=== PATIENT | male | born 1975 | race Caucasian/White ===

== ENCOUNTER 2023-02-13 15:11 | Emergency (ER) | payer MEDICAID ==
[~2023-02-13] VITALS: Ht 170.2 cm; Wt 89.9 kg
[2023-02-13 15:23] VITALS: BP 132/75; PULSE 106; RESP 20; TEMP 97.7; O2SAT 98
[2023-02-13 16:22] LABS: BASOPHILS % (AUTO) 0.3 % (0.0-2.0); EOSINOPHILS # (AUTO) 0.2 K/uL (0-0.4); EOSINOPHILS % (AUTO) 2.8 % (0.0-4.0); HEMATOCRIT 47.9 % (36-52); HEMOGLOBIN 16.2 g/dL (12.0-18.0); LYMPHOCYTES % (AUTO) 30.1 % (20.5-51.1); MEAN CORPUSCULAR HEMOGLOBIN 30 pg (27-31); MEAN CORPUSCULAR HGB CONC 34 g/dL (33-37); MEAN CORPUSCULAR VOLUME 89.9 fL (80-94); MONOCYTES # (AUTO) 0.4 K/uL (0.8-1.0); MONOCYTES % (AUTO) 6.3 % (1.7-9.3); NEUTROPHILS # (AUTO) 4.1 K/uL (1.8-7.7); NEUTROPHILS % (AUTO) 60.5 % (42.2-75.2); PLATELET COUNT (AUTO) 240 K/uL (140-450); RED BLOOD CELL COUNT(AUTO) 5.33 MIL/uL (4.20-6.10); RED CELL DISTRIBUTION WIDTH 13.5 % (11.6-13.7); WHITE BLOOD COUNT (AUTO) 6.7 K/uL (4.8-10.8)
[2023-02-13 16:40] LABS: ALANINE AMINOTRANSFERASE 67 U/L (12-78); ALBUMIN 4.1 g/dL (3.4-5.0); ALKALINE PHOSPHATASE 90 U/L (50-136); ANION GAP 12.7 (8-16); ASPARTATE AMINOTRANSFERASE 29 U/L (15-37); CALCIUM 8.7 mg/dL (8.5-10.1); CARBON DIOXIDE 27.6 mmol/L (21-32); CHLORIDE 102 mmol/L (98-107); CREATININE 0.9 mg/dL (0.6-1.3); GFR ARICAN-AMERICAN 116 mL/min (>90); GFR NON ARICAN-AMERICAN 96 mL/min (>90); GLUCOSE 101 mg/dL (74-106); POTASSIUM 4.3 mmol/L (3.5-5.1); SODIUM SERUM 138 mmol/L (136-145); TOTAL BILIRUBIN 0.5 mg/dL (0.0-1.0); TOTAL PROTEIN, SERUM 7.7 g/dL (6.4-8.2); UREA NITROGEN, BLOOD 8 mg/dL (7-18)
[2023-02-13] MEDS ORDERED: KETOROLAC 30 MG/ML VIAL IM ONE (18:20)
[2023-02-13] MEDS ORDERED: IBUP-2213 PO (18:45)
[2023-02-13 20:07] VITALS: BP 134/82; PULSE 83; RESP 18; TEMP 97.6; O2SAT 100
== END 2023-02-13 20:07 | disposition home or self-care (01) ==
LOC: MED 15:11
DX: R07.9 Chest pain, unspecified (principal); Z79.1 Long term (current) use of non-steroidal anti-inflammatories (NSAID)
CPT/HCPCS: 36415; 71045; 80053; 84484; 85025; 93005; 96372; 99285; J1885

== ENCOUNTER 2023-03-04 16:59 | Emergency (ER) | payer MEDICAID, OTHER ==
[~2023-03-04] VITALS: Ht 167.6 cm; Wt 86.6 kg
[~2023-03-04 16:59] MED LIST: IBUP-2213 PO
[2023-03-04 17:05] VITALS: BP 111/65; PULSE 101; RESP 22; TEMP 98.3; O2SAT 99
[2023-03-04] MEDS ORDERED: ONDANSETRON 4 MG/2 ML VIAL IVP ONE (17:55)
[2023-03-04] MEDS ORDERED: KETOROLAC 15 MG/ML VIAL IVP ONE (18:00)
[2023-03-04] MEDS ORDERED: ACETAMINOPHEN 325 MG TAB PO ONE (18:00)
[2023-03-04 18:36] LABS: BASOPHILS % (AUTO) 0.3 % (0.0-2.0); EOSINOPHILS # (AUTO) 0.2 K/uL (0-0.4); EOSINOPHILS % (AUTO) 2.4 % (0.0-4.0); HEMATOCRIT 48.1 % (36-52); HEMOGLOBIN 16.4 g/dL (12.0-18.0); LYMPHOCYTES # (AUTO) 2.4 K/uL (2.0-11.5); LYMPHOCYTES % (AUTO) 25.5 % (20.5-51.1); MEAN CORPUSCULAR HEMOGLOBIN 31 pg (27-31); MEAN CORPUSCULAR HGB CONC 34 g/dL (33-37); MEAN CORPUSCULAR VOLUME 89.6 fL (80-94); MONOCYTES # (AUTO) 0.7 K/uL (0.8-1.0); MONOCYTES % (AUTO) 6.8 % (1.7-9.3); NEUTROPHILS # (AUTO) 6.2 K/uL (1.8-7.7); PLATELET COUNT (AUTO) 245 K/uL (140-450); RED BLOOD CELL COUNT(AUTO) 5.37 MIL/uL (4.20-6.10); RED CELL DISTRIBUTION WIDTH 13.5 % (11.6-13.7); WHITE BLOOD COUNT (AUTO) 9.6 K/uL (4.8-10.8)
[2023-03-04 18:45] VITALS: O2SAT 98
[2023-03-04 19:06] LABS: ALANINE AMINOTRANSFERASE 68 U/L (12-78); ALKALINE PHOSPHATASE 84 U/L (50-136); ANION GAP 14.6 (8-16); ASPARTATE AMINOTRANSFERASE 29 U/L (15-37); CALCIUM 8.5 mg/dL (8.5-10.1); CARBON DIOXIDE 23.1 mmol/L (21-32); CHLORIDE 104 mmol/L (98-107); CREATININE 1.1 mg/dL (0.6-1.3); GFR ARICAN-AMERICAN 92 mL/min (>90); GFR NON ARICAN-AMERICAN 76 mL/min (>90); GLUCOSE 92 mg/dL (74-106); POTASSIUM 3.7 mmol/L (3.5-5.1); SODIUM SERUM 138 mmol/L (136-145); TOTAL BILIRUBIN 0.4 mg/dL (0.0-1.0); TOTAL PROTEIN, SERUM 7.6 g/dL (6.4-8.2); UREA NITROGEN, BLOOD 10 mg/dL (7-18)
[2023-03-04 20:00] VITALS: BP 122/70; PULSE 74; RESP 17; O2SAT 98
== END 2023-03-04 20:02 | disposition home or self-care (01) ==
LOC: MED 16:59
DX: R07.9 Chest pain, unspecified (principal); R00.0 Tachycardia, unspecified; F41.9 Anxiety disorder, unspecified; Z88.0 Allergy status to penicillin
CPT/HCPCS: 36415; 71045; 80053; 84484; 85025; 85379; 96374; 96375; 99285; J1885; J2405

== ENCOUNTER 2023-06-15 20:34 | Emergency (ER) | payer MEDICAID, OTHER ==
[~2023-06-15] VITALS: Ht 170.2 cm; Wt 86.6 kg
[2023-06-15 20:48] VITALS: BP 158/85; PULSE 85; RESP 20; TEMP 98; O2SAT 98
[2023-06-15 20:55] VITALS: BP 158/85; PULSE 85; RESP 20; TEMP 98; O2SAT 98
[2023-06-15 21:15] LABS: BASOPHILS % (AUTO) 0.5 % (0.0-2.0); EOSINOPHILS # (AUTO) 0.3 K/uL (0-0.4); EOSINOPHILS % (AUTO) 3.6 % (0.0-4.0); HEMATOCRIT 49.9 % (36-52); HEMOGLOBIN 16.8 g/dL (12.0-18.0); LYMPHOCYTES # (AUTO) 2.3 K/uL (2.0-11.5); LYMPHOCYTES % (AUTO) 32.6 % (20.5-51.1); MEAN CORPUSCULAR HEMOGLOBIN 30 pg (27-31); MEAN CORPUSCULAR HGB CONC 34 g/dL (33-37); MEAN CORPUSCULAR VOLUME 89.4 fL (80-94); MONOCYTES # (AUTO) 0.5 K/uL (0.8-1.0); NEUTROPHILS # (AUTO) 3.9 K/uL (1.8-7.7); NEUTROPHILS % (AUTO) 56.3 % (42.2-75.2); PLATELET COUNT (AUTO) 265 K/uL (140-450); RED BLOOD CELL COUNT(AUTO) 5.58 MIL/uL (4.20-6.10); RED CELL DISTRIBUTION WIDTH 13.6 % (11.6-13.7)
[2023-06-15 21:30] LABS: ANION GAP 12.5 (8-16); CARBON DIOXIDE 29.3 mmol/L (21-32); CREATININE 0.9 mg/dL (0.6-1.3); POTASSIUM 3.8 mmol/L (3.5-5.1); TOTAL BILIRUBIN 0.5 mg/dL (0.0-1.0)
[2023-06-15] MEDS ORDERED: HYDR25CA1 PO (22:06)
== END 2023-06-15 22:08 | disposition home or self-care (01) ==
LOC: MED 20:34
DX: R07.9 Chest pain, unspecified (principal); F41.9 Anxiety disorder, unspecified; R42 Dizziness and giddiness; I10 Essential (primary) hypertension; Z87.891 Personal history of nicotine dependence; Z79.1 Long term (current) use of non-steroidal anti-inflammatories (NSAID); Z88.0 Allergy status to penicillin
CPT/HCPCS: 36415; 71045; 80053; 83880; 84484; 85025; 85379; 93005; 99285; Q0092

== ENCOUNTER 2023-07-28 23:35 | Emergency (ER) | payer OTHER ==
[~2023-07-28] VITALS: Ht 170.2 cm; Wt 86.6 kg
[~2023-07-28 23:35] MED LIST changes: +HYDR25CA1 PO
[2023-07-29 00:02] VITALS: BP 136/81; PULSE 83; RESP 18; TEMP 97.8; O2SAT 97
[2023-07-29 00:53] LABS: BASOPHILS # (AUTO) 0.1 K/uL (0.00-0.22); BASOPHILS % (AUTO) 0.8 % (0.0-2.0); EOSINOPHILS # (AUTO) 0.3 K/uL (0-0.4); EOSINOPHILS % (AUTO) 4.4 % (0.0-4.0); HEMATOCRIT 48.6 % (36-52); HEMOGLOBIN 16.5 g/dL (12.0-18.0); LYMPHOCYTES # (AUTO) 2.7 K/uL (2.0-11.5); LYMPHOCYTES % (AUTO) 40.3 % (20.5-51.1); MEAN CORPUSCULAR HEMOGLOBIN 30 pg (27-31); MEAN CORPUSCULAR HGB CONC 34 g/dL (33-37); MEAN CORPUSCULAR VOLUME 89.7 fL (80-94); MONOCYTES # (AUTO) 0.7 K/uL (0.8-1.0); MONOCYTES % (AUTO) 10.6 % (1.7-9.3); NEUTROPHILS % (AUTO) 43.9 % (42.2-75.2); PLATELET COUNT (AUTO) 243 K/uL (140-450); RED BLOOD CELL COUNT(AUTO) 5.42 MIL/uL (4.20-6.10); WHITE BLOOD COUNT (AUTO) 6.8 K/uL (4.8-10.8)
[2023-07-29 01:17] LABS: INR 0.94 (0.8-1.2); PARTIAL THROMBOPLASTIN TIME 24.6 secs (22-35.6); PROTHROMBIN TIME 9.9 secs (10.8-13.4)
[2023-07-29 01:24] LABS: ANION GAP 12.2 (8-16); CALCIUM 9.1 mg/dL (8.5-10.1); CARBON DIOXIDE 29.8 mmol/L (21-32); CREATININE 0.9 mg/dL (0.6-1.3)
[2023-07-29 01:31] LABS: ALANINE AMINOTRANSFERASE 84 U/L (12-78); ALBUMIN 3.1 g/dL (3.4-5.0); ALKALINE PHOSPHATASE 90 U/L (50-136); ASPARTATE AMINOTRANSFERASE 27 U/L (15-37); BILIRUBIN,DIRECT 0.1 mg/dL (0.0-0.3); TOTAL BILIRUBIN 0.4 mg/dL (0.0-1.0); TOTAL PROTEIN, SERUM 8.7 g/dL (6.4-8.2)
[2023-07-29] MEDS ORDERED: LORazepam 1 MG TAB PO ONE (01:35)
[2023-07-29] MEDS: LORazepam 2 MG/ML VIAL IVP ONE (02:11)
[2023-07-29] MEDS ORDERED: ATI.5 PO (03:29)
[2023-07-29 04:08] VITALS: BP 141/86; PULSE 80; RESP 18; TEMP 97.8; O2SAT 98
== END 2023-07-29 04:09 | disposition home or self-care (01) ==
LOC: MED 23:35
DX: F41.9 Anxiety disorder, unspecified (principal); I10 Essential (primary) hypertension; E78.5 Hyperlipidemia, unspecified; Z79.899 Other long term (current) drug therapy; Z79.1 Long term (current) use of non-steroidal anti-inflammatories (NSAID); Z88.0 Allergy status to penicillin
CPT/HCPCS: 36415; 71045; 80048; 80076; 83880; 84484; 85025; 85610; 85730; 93005; 96374; 99285; J2060; Q0092

== ENCOUNTER 2023-08-04 19:54 | Emergency (ER) | payer OTHER ==
[~2023-08-04] VITALS: Ht 167.6 cm; Wt 89.8 kg
[~2023-08-04 19:54] MED LIST changes: +ATI.5 PO
[2023-08-04 20:11] VITALS: BP 122/79; PULSE 98; RESP 19; TEMP 98.4; O2SAT 100
[2023-08-04] MEDS ORDERED: LORazepam 1 MG TAB PO ONE (20:55)
== END 2023-08-04 21:12 | disposition home or self-care (01) ==
LOC: MED 19:54
DX: F41.0 Panic disorder [episodic paroxysmal anxiety] (principal); Z79.899 Other long term (current) drug therapy
CPT/HCPCS: 93005; 99283

== ENCOUNTER 2023-08-07 20:56 | Emergency (ER) | payer OTHER ==
[~2023-08-07] VITALS: Ht 170.2 cm; Wt 88.5 kg
[2023-08-07 21:02] VITALS: BP 136/100; PULSE 83; RESP 16; TEMP 96.3; O2SAT 100
[2023-08-07 21:59] LABS: BASOPHILS % (AUTO) 0.3 % (0.0-2.0); EOSINOPHILS # (AUTO) 0.3 K/uL (0-0.4); EOSINOPHILS % (AUTO) 4.4 % (0.0-4.0); HEMATOCRIT 49.9 % (36-52); HEMOGLOBIN 16.8 g/dL (12.0-18.0); LYMPHOCYTES # (AUTO) 2.6 K/uL (2.0-11.5); LYMPHOCYTES % (AUTO) 34.1 % (20.5-51.1); MEAN CORPUSCULAR HEMOGLOBIN 31 pg (27-31); MEAN CORPUSCULAR HGB CONC 34 g/dL (33-37); MEAN CORPUSCULAR VOLUME 91.6 fL (80-94); MONOCYTES # (AUTO) 0.6 K/uL (0.8-1.0); MONOCYTES % (AUTO) 7.4 % (1.7-9.3); NEUTROPHILS # (AUTO) 4.1 K/uL (1.8-7.7); NEUTROPHILS % (AUTO) 53.8 % (42.2-75.2); PLATELET COUNT (AUTO) 230 K/uL (140-450); RED BLOOD CELL COUNT(AUTO) 5.45 MIL/uL (4.20-6.10); RED CELL DISTRIBUTION WIDTH 13.3 % (11.6-13.7); WHITE BLOOD COUNT (AUTO) 7.6 K/uL (4.8-10.8)
[2023-08-07 22:00] LABS: ANION GAP 13.2 (8-16); CARBON DIOXIDE 27.4 mmol/L (21-32); CREATININE 0.9 mg/dL (0.6-1.3); POTASSIUM 4.6 mmol/L (3.5-5.1)
[2023-08-07] MEDS ORDERED: LORazepam 1 MG TAB PO ONE (22:30)
[2023-08-07] MEDS ORDERED: ATI.5 PO (23:59)
[2023-08-08 00:09] VITALS: BP 136/91; PULSE 87; RESP 16; TEMP 96.3; O2SAT 99
== END 2023-08-08 00:09 | disposition home or self-care (01) ==
LOC: MED 20:56
DX: R07.89 Other chest pain (principal); F41.9 Anxiety disorder, unspecified; I10 Essential (primary) hypertension; Z79.899 Other long term (current) drug therapy; Z79.1 Long term (current) use of non-steroidal anti-inflammatories (NSAID); Z88.0 Allergy status to penicillin
CPT/HCPCS: 36415; 71045; 80048; 83880; 84484; 85025; 93005; 99285